=== PATIENT | male | born 2000 | race Caucasian/White ===

== ENCOUNTER 2022-06-01 22:15 | Inpatient (IN) ==
[2022-06-02] MEDS ORDERED: ONDANSETRON 4 MG/2 ML VIAL ONE (00:01)
[2022-06-02] MEDS ORDERED: ONDANSETRON 4 MG/2 ML VIAL IV STA (00:02)
[2022-06-02] MEDS ORDERED: SODIUM CHLORIDE 0.9% 1,000 ML IV STA (00:02)
[2022-06-02] MEDS ORDERED: KETOROLAC 30 MG/1 ML VIAL IV STA (00:41)
[2022-06-02] MEDS ORDERED: LEVOFLOXACIN INJ 750 MG/150 ML PREMIX IV STA (00:42)
[2022-06-02 00:53] LABS: Basophils % 0.2 % (0.0-0.8); Hematocrit 33.6 VOL% (42.0-52.0); Hemoglobin 11.8 GM/DL (14.0-18.0); Immature Granulocytes % 0.2 %; Immature Granulocytes Absolute 0.03 #; Lymphocytes # 0.7 10*3/uL (1.4-4.0); Lymphocytes % 5.3 % (21.2-54.2); Mean Corpuscular HGB Conc 35.1 GM/DL (32-36); Mean Corpuscular Volume 89.6 FL (87-102); Mean Platelet Volume 10.1 FL (9.6-12.0); Monocytes # 1.4 10*3/uL (0.11-0.8); Monocytes % 10.6 % (1.7-12.7); Neutrophils % 83.7 % (38.7-73.9); Platelet Count 183 T/CUMM (130-400); Red Blood Count 3.75 MC/CUMM (3.8-5.5); Red Cell Distribution Width 12.2 % (9.3-17.3); White Blood Count 12.7 T/CUMM (4-12)
[2022-06-02 01:15] LABS: Albumin 3.6 G/DL (3.4-5.0); Bilirubin,Total 0.7 MG/DL (0.20-1.00); Osmolality,Calculated 270.2 MOS/KG (273-304); Potassium 3.6 MMOL/L (3.5-5.1); Total Protein 7.7 G/DL (6.4-8.2)
[2022-06-02] MEDS ORDERED: PROMETHAZINE 25 MG/1 ML VIAL IM PRN (02:26)
[2022-06-02] MEDS ORDERED: SODIUM CHLORIDE 0.9% 1,000 ML IV SCH (02:30)
[2022-06-02 02:45] LABS: Mucus,Urine Many /LPF (Occasional); Protein,Urine 100 mg/dL (Negative); RBC,Urine 1 /HPF (0-4); Squamous Epithelial Cell,Urine Occasional /HPF (0-10); Urine Appearance Clear (Clear); Urine Color Yellow (Yellow); Urine Specific Gravity > 1.030 (1.001-1.035); Urine pH 5.5 (4.5-8.0)
[2022-06-02 02:46] LABS: Bilirubin,Urine Small mg/dL (Negative); Blood, Urine Negative (Negative); Glucose,Urine (UA) Negative (Negative); Ketones,Urine Trace mg/dL (Negative); Nitrite,Urine Negative (Negative)
[2022-06-02] MEDS ORDERED: SODIUM CHLORIDE 0.9% 500 ML IV STA (04:39)
[2022-06-02] MEDS ORDERED: PANTOPRAZOLE 40 MG TABLET PO SCH (09:00)
[2022-06-02] MEDS ORDERED: cefTRIAXone 1,000 MG VIAL ONE (09:07)
[2022-06-02] MEDS: ENOXAPARIN 40 MG/0.4 ML SYRINGE SUBCUT SCH (09:14)
[2022-06-02] MEDS: cefTRIAXone 2,000 MG in SODIUM CHLORIDE 0.9% 100 ML IV SCH (09:15)
[2022-06-02 09:16] LABS: Basophils % 0.3 % (0.0-0.8); Eosinophils % 0.1 % (0.00-10.9); Hematocrit 28.5 VOL% (42.0-52.0); Immature Granulocytes % 0.6 %; Immature Granulocytes Absolute 0.06 #; Lymphocytes % 10.5 % (21.2-54.2); Mean Corpuscular Volume 91.3 FL (87-102); Mean Platelet Volume 9.6 FL (9.6-12.0); Monocytes # 1.2 10*3/uL (0.11-0.8); Monocytes % 12.1 % (1.7-12.7); Neutrophils % 76.4 % (38.7-73.9); Platelet Count 162 T/CUMM (130-400); Red Blood Count 3.12 MC/CUMM (3.8-5.5); Red Cell Distribution Width 12.2 % (9.3-17.3); White Blood Count 9.8 T/CUMM (4-12)
[2022-06-02 09:17] LABS: Hemoglobin 9.7 GM/DL (14.0-18.0)
[2022-06-02 09:32] LABS: Albumin 2.8 G/DL (3.4-5.0); Bilirubin,Total 0.6 MG/DL (0.20-1.00); Calcium 8.3 MG/DL (8.5-10.1); Osmolality,Calculated 276.8 MOS/KG (273-304); Potassium 3.9 MMOL/L (3.5-5.1); Total Protein 6.5 G/DL (6.4-8.2)
[2022-06-02] MEDS ORDERED: NICOTINE 21 MG/24 HR PATCH TRANSDERM PRN (12:07)
[2022-06-02] MEDS: ONDANSETRON 4 MG/2 ML VIAL IV PRN (17:41)
[2022-06-02] MEDS: ACETAMINOPHEN 325 MG TABLET PO PRN (18:56)
[2022-06-02] MEDS: risperiDONE 1 MG TABLET PO SCH (21:12)
[2022-06-02] MEDS: CITALOPRAM 20 MG TABLET PO SCH (21:12)
[2022-06-02] MEDS: PROPRANOLOL 20 MG TABLET PO SCH (21:12)
[2022-06-02] MEDS: CYPROHEPTADINE 4 MG TABLET PO SCH (21:12)
[2022-06-03] MEDS ORDERED: LEVOFLOXACIN INJ 750 MG/150 ML PREMIX IV SCH (01:00)
[2022-06-03 04:44] LABS: Basophils % 0.3 % (0.0-0.8); Eosinophils % 0.5 % (0.00-10.9); Hematocrit 31.2 VOL% (42.0-52.0); Hemoglobin 10.3 GM/DL (14.0-18.0); Immature Granulocytes % 0.5 %; Immature Granulocytes Absolute 0.04 #; Lymphocytes % 13.7 % (21.2-54.2); Mean Corpuscular Volume 94.3 FL (87-102); Mean Platelet Volume 9.7 FL (9.6-12.0); Monocytes % 13.4 % (1.7-12.7); Neutrophils % 71.6 % (38.7-73.9); Platelet Count 164 T/CUMM (130-400); Red Blood Count 3.31 MC/CUMM (3.8-5.5); Red Cell Distribution Width 12.2 % (9.3-17.3); White Blood Count 7.5 T/CUMM (4-12)
[2022-06-03 05:24] LABS: Calcium 8.9 MG/DL (8.5-10.1); Folate 9.8 NG/ML (5.38-24.0); Osmolality,Calculated 272.8 MOS/KG (273-304); Potassium 4.2 MMOL/L (3.5-5.1)
[2022-06-03 05:49] LABS: HIV Antigen/Antibody Result Nonreactive (Nonreactive)
[2022-06-03 06:07] LABS: Sedimentation Rate-Westergren 100 MM/HR (0-15)
[2022-06-03] MEDS: cefTRIAXone 2,000 MG in SODIUM CHLORIDE 0.9% 100 ML IV SCH (08:26)
[2022-06-03] MEDS: AZITHROMYCIN 250 MG TABLET PO SCH (08:26)
[2022-06-03] MEDS: ENOXAPARIN 40 MG/0.4 ML SYRINGE SUBCUT SCH (08:26)
[2022-06-03] MEDS: ACETAMINOPHEN 325 MG TABLET PO PRN (12:30)
[2022-06-03] MEDS: CYPROHEPTADINE 4 MG TABLET PO SCH (20:27)
[2022-06-03] MEDS: CITALOPRAM 20 MG TABLET PO SCH (20:28)
[2022-06-03] MEDS: PROPRANOLOL 20 MG TABLET PO SCH (20:28)
[2022-06-03] MEDS: risperiDONE 1 MG TABLET PO SCH (20:28)
[2022-06-04] MEDS: ACETAMINOPHEN 325 MG TABLET PO PRN (04:56)
[2022-06-04] MEDS: ONDANSETRON 4 MG/2 ML VIAL IV PRN ×2 (04:57→21:08)
[2022-06-04] MEDS: PANTOPRAZOLE 40 MG TABLET PO SCH (05:32)
[2022-06-04] MEDS ORDERED: propofoL 200 MG/20 ML VIAL IV ONE (06:53)
[2022-06-04] MEDS ORDERED: LIDOCAINE 2% 5 ML VIAL ONE (06:53)
[2022-06-04] MEDS ORDERED: SODIUM CHLORIDE 0.9% 1,000 ML IV SCH (07:00)
[2022-06-04] MEDS ORDERED: FAMOTIDINE 20 MG/2 ML VIAL IV ONE (07:16)
[2022-06-04 08:55] LABS: Basophils % 0.4 % (0.0-0.8); Eosinophils # 0.1 10*3/uL (0.0-0.87); Eosinophils % 0.9 % (0.00-10.9); Hematocrit 31.1 VOL% (42.0-52.0); Hemoglobin 10.5 GM/DL (14.0-18.0); Immature Granulocytes % 0.5 %; Immature Granulocytes Absolute 0.04 #; Lymphocytes % 12.4 % (21.2-54.2); Mean Corpuscular HGB Conc 33.8 GM/DL (32-36); Mean Corpuscular Volume 91.7 FL (87-102); Mean Platelet Volume 9.8 FL (9.6-12.0); Monocytes # 0.9 10*3/uL (0.11-0.8); Neutrophils % 74.8 % (38.7-73.9); Platelet Count 250 T/CUMM (130-400); Red Blood Count 3.39 MC/CUMM (3.8-5.5); Red Cell Distribution Width 12.4 % (9.3-17.3); White Blood Count 7.7 T/CUMM (4-12)
[2022-06-04 09:12] LABS: Calcium 8.9 MG/DL (8.5-10.1); Osmolality,Calculated 274.7 MOS/KG (273-304); Potassium 4.3 MMOL/L (3.5-5.1)
[2022-06-04] MEDS: AZITHROMYCIN 250 MG TABLET PO SCH (10:06)
[2022-06-04] MEDS: ENOXAPARIN 40 MG/0.4 ML SYRINGE SUBCUT SCH (10:06)
[2022-06-04] MEDS: cefTRIAXone 2,000 MG in SODIUM CHLORIDE 0.9% 100 ML IV SCH (10:07)
[2022-06-04] MEDS: CYPROHEPTADINE 4 MG TABLET PO SCH (21:09)
[2022-06-04] MEDS: risperiDONE 1 MG TABLET PO SCH (21:09)
[2022-06-04] MEDS: PROPRANOLOL 20 MG TABLET PO SCH (21:09)
[2022-06-04] MEDS: CITALOPRAM 20 MG TABLET PO SCH (21:09)
[2022-06-05 05:36] LABS: Basophils % 0.5 % (0.0-0.8); Eosinophils # 0.1 10*3/uL (0.0-0.87); Eosinophils % 1.5 % (0.00-10.9); Hematocrit 31.3 VOL% (42.0-52.0); Hemoglobin 10.4 GM/DL (14.0-18.0); Immature Granulocytes % 1.6 %; Immature Granulocytes Absolute 0.12 #; Lymphocytes # 1.6 10*3/uL (1.4-4.0); Mean Corpuscular HGB Conc 33.2 GM/DL (32-36); Mean Corpuscular Volume 92.1 FL (87-102); Mean Platelet Volume 9.4 FL (9.6-12.0); Monocytes # 0.9 10*3/uL (0.11-0.8); Monocytes % 11.8 % (1.7-12.7); Neutrophils % 63.6 % (38.7-73.9); Platelet Count 259 T/CUMM (130-400); Red Cell Distribution Width 12.2 % (9.3-17.3); White Blood Count 7.5 T/CUMM (4-12)
[2022-06-05 05:58] LABS: Calcium 9.6 MG/DL (8.5-10.1); Osmolality,Calculated 274.7 MOS/KG (273-304); Potassium 4.1 MMOL/L (3.5-5.1)
[2022-06-05] MEDS: PANTOPRAZOLE 40 MG TABLET PO SCH (06:06)
[2022-06-05] MEDS: AZITHROMYCIN 250 MG TABLET PO SCH (09:34)
[2022-06-05] MEDS: cefTRIAXone 2,000 MG in SODIUM CHLORIDE 0.9% 100 ML IV SCH (09:34)
[2022-06-05] MEDS: ACETAMINOPHEN 325 MG TABLET PO PRN ×2 (09:34→14:44)
[2022-06-05] MEDS: PROPRANOLOL 20 MG TABLET PO SCH (20:53)
[2022-06-05] MEDS: CYPROHEPTADINE 4 MG TABLET PO SCH (20:54)
[2022-06-05] MEDS: risperiDONE 1 MG TABLET PO SCH (20:54)
[2022-06-05] MEDS: CITALOPRAM 20 MG TABLET PO SCH (20:54)
[2022-06-06 04:35] LABS: Basophils % 0.3 % (0.0-0.8); Eosinophils # 0.1 10*3/uL (0.0-0.87); Eosinophils % 1.2 % (0.00-10.9); Hematocrit 31.1 VOL% (42.0-52.0); Hemoglobin 10.6 GM/DL (14.0-18.0); Immature Granulocytes % 1.6 %; Immature Granulocytes Absolute 0.19 #; Lymphocytes # 1.7 10*3/uL (1.4-4.0); Lymphocytes % 14.5 % (21.2-54.2); Mean Corpuscular HGB Conc 34.1 GM/DL (32-36); Mean Corpuscular Volume 91.5 FL (87-102); Mean Platelet Volume 8.8 FL (9.6-12.0); Monocytes # 1.2 10*3/uL (0.11-0.8); Neutrophils % 72.4 % (38.7-73.9); Platelet Count 295 T/CUMM (130-400); White Blood Count 11.6 T/CUMM (4-12)
[2022-06-06 04:58] LABS: Calcium 8.9 MG/DL (8.5-10.1); Osmolality,Calculated 277.5 MOS/KG (273-304); Potassium 4.3 MMOL/L (3.5-5.1)
[2022-06-06] MEDS: PANTOPRAZOLE 40 MG TABLET PO SCH (06:08)
[2022-06-06] MEDS: cefTRIAXone 2,000 MG in SODIUM CHLORIDE 0.9% 100 ML IV SCH (09:28)
[2022-06-06] MEDS: AZITHROMYCIN 250 MG TABLET PO SCH (09:28)
[2022-06-06] MEDS: ONDANSETRON 4 MG/2 ML VIAL IV PRN ×2 (12:36→23:06)
[2022-06-06] MEDS: CITALOPRAM 20 MG TABLET PO SCH (21:47)
[2022-06-06] MEDS: PROPRANOLOL 20 MG TABLET PO SCH (21:47)
[2022-06-06] MEDS: risperiDONE 1 MG TABLET PO SCH (21:48)
[2022-06-06] MEDS: CYPROHEPTADINE 4 MG TABLET PO SCH (21:48)
[2022-06-06] MEDS: ACETAMINOPHEN 325 MG TABLET PO PRN (23:48)
[2022-06-07] MEDS: PANTOPRAZOLE 40 MG TABLET PO SCH (06:18)
[2022-06-07] MEDS: ONDANSETRON 4 MG/2 ML VIAL IV PRN (06:20)
[2022-06-07] MEDS: ACETAMINOPHEN 325 MG TABLET PO PRN ×2 (08:16→13:54)
[2022-06-07] MEDS: AZITHROMYCIN 250 MG TABLET PO SCH (08:16)
[2022-06-07] MEDS: cefTRIAXone 2,000 MG in SODIUM CHLORIDE 0.9% 100 ML IV SCH (08:21)
[2022-06-07 08:56] LABS: Basophils # 0.1 10*3/uL (0.0-0.2); Basophils % 0.3 % (0.0-0.8); Eosinophils # 0.1 10*3/uL (0.0-0.87); Eosinophils % 0.6 % (0.00-10.9); Hematocrit 30.9 VOL% (42.0-52.0); Hemoglobin 10.5 GM/DL (14.0-18.0); Immature Granulocytes % 1.6 %; Immature Granulocytes Absolute 0.29 #; Lymphocytes # 1.3 10*3/uL (1.4-4.0); Lymphocytes % 7.3 % (21.2-54.2); Mean Corpuscular Volume 88.8 FL (87-102); Mean Platelet Volume 8.9 FL (9.6-12.0); Monocytes # 1.6 10*3/uL (0.11-0.8); Monocytes % 8.7 % (1.7-12.7); Neutrophils % 81.5 % (38.7-73.9); Platelet Count 384 T/CUMM (130-400); Red Blood Count 3.48 MC/CUMM (3.8-5.5); Red Cell Distribution Width 12.2 % (9.3-17.3); White Blood Count 17.9 T/CUMM (4-12)
[2022-06-07 12:10] LABS: Bilirubin,Urine Negative (Negative); Blood, Urine Negative (Negative); Glucose,Urine (UA) Negative (Negative); Ketones,Urine Negative (Negative); Nitrite,Urine Negative (Negative); Protein,Urine Negative (Negative); Urine Appearance Clear (Clear); Urine Color Yellow (Yellow); Urine Urobilinogen 0.2 eU/dL (<2.0)
[2022-06-07 12:14] LABS: RBC,Urine 1 /HPF (0-4)
[2022-06-07] MEDS: PROPRANOLOL 20 MG TABLET PO SCH (20:30)
[2022-06-07] MEDS: risperiDONE 1 MG TABLET PO SCH (20:30)
[2022-06-07] MEDS: CYPROHEPTADINE 4 MG TABLET PO SCH (20:30)
[2022-06-07] MEDS: CITALOPRAM 20 MG TABLET PO SCH (20:30)
[2022-06-07] MEDS ORDERED: cefTRIAXone 2,000 MG in SODIUM CHLORIDE 0.9% 100 ML IV SCH (21:00)
[2022-06-08] MEDS: ACETAMINOPHEN 325 MG TABLET PO PRN ×2 (05:40→19:50)
[2022-06-08] MEDS: PANTOPRAZOLE 40 MG TABLET PO SCH (05:40)
[2022-06-08 06:14] LABS: Basophils # 0.1 10*3/uL (0.0-0.2); Basophils % 0.3 % (0.0-0.8); Eosinophils # 0.1 10*3/uL (0.0-0.87); Eosinophils % 0.7 % (0.00-10.9); Hematocrit 29.8 VOL% (42.0-52.0); Hemoglobin 10.3 GM/DL (14.0-18.0); Immature Granulocytes % 2.6 %; Immature Granulocytes Absolute 0.38 #; Lymphocytes # 1.4 10*3/uL (1.4-4.0); Lymphocytes % 9.6 % (21.2-54.2); Mean Corpuscular HGB Conc 34.6 GM/DL (32-36); Mean Corpuscular Volume 90.6 FL (87-102); Mean Platelet Volume 8.7 FL (9.6-12.0); Monocytes # 1.6 10*3/uL (0.11-0.8); Monocytes % 10.6 % (1.7-12.7); Neutrophils % 76.2 % (38.7-73.9); Platelet Count 390 T/CUMM (130-400); Red Blood Count 3.29 MC/CUMM (3.8-5.5); Red Cell Distribution Width 12.1 % (9.3-17.3); White Blood Count 14.9 T/CUMM (4-12)
[2022-06-08 06:34] LABS: Calcium 9.8 MG/DL (8.5-10.1); Osmolality,Calculated 264.5 MOS/KG (273-304); Potassium 4.1 MMOL/L (3.5-5.1)
[2022-06-08] MEDS: cefTRIAXone 2,000 MG in SODIUM CHLORIDE 0.9% 100 ML IV SCH ×2 (09:03→20:00)
[2022-06-08] MEDS: ONDANSETRON 4 MG/2 ML VIAL IV PRN (16:36)
[2022-06-08] MEDS: risperiDONE 1 MG TABLET PO SCH (20:00)
[2022-06-08] MEDS: CYPROHEPTADINE 4 MG TABLET PO SCH (20:00)
[2022-06-08] MEDS: PROPRANOLOL 20 MG TABLET PO SCH (20:00)
[2022-06-08] MEDS: CITALOPRAM 20 MG TABLET PO SCH (20:00)
[2022-06-09] MEDS: PANTOPRAZOLE 40 MG TABLET PO SCH (05:30)
[2022-06-09 05:32] LABS: Basophils % 0.3 % (0.0-0.8); Eosinophils # 0.1 10*3/uL (0.0-0.87); Eosinophils % 1.2 % (0.00-10.9); Hemoglobin 9.9 GM/DL (14.0-18.0); Immature Granulocytes % 2.2 %; Immature Granulocytes Absolute 0.27 #; Lymphocytes # 1.2 10*3/uL (1.4-4.0); Mean Corpuscular HGB Conc 34.1 GM/DL (32-36); Mean Corpuscular Volume 90.1 FL (87-102); Mean Platelet Volume 8.7 FL (9.6-12.0); Monocytes # 1.2 10*3/uL (0.11-0.8); Monocytes % 9.8 % (1.7-12.7); Neutrophils % 76.5 % (38.7-73.9); Platelet Count 404 T/CUMM (130-400); Red Blood Count 3.22 MC/CUMM (3.8-5.5); Red Cell Distribution Width 11.9 % (9.3-17.3); White Blood Count 12.1 T/CUMM (4-12)
[2022-06-09 05:56] LABS: Calcium 9.4 MG/DL (8.5-10.1); Osmolality,Calculated 270.1 MOS/KG (273-304); Potassium 3.6 MMOL/L (3.5-5.1)
[2022-06-09] MEDS: cefTRIAXone 2,000 MG in SODIUM CHLORIDE 0.9% 100 ML IV SCH (09:08)
[2022-06-09] MEDS: GENTAMICIN INJ 80 MG/50 ML PREMIX IV SCH ×2 (12:24→21:19)
[2022-06-09] MEDS: ACETAMINOPHEN 325 MG TABLET PO PRN (12:29)
[2022-06-09] MEDS: ALBUTEROL/IPRATROPIUM 3 ML NEB RESP TX SCH ×2 (14:15→19:26)
[2022-06-09] MEDS: CYPROHEPTADINE 4 MG TABLET PO SCH (21:20)
[2022-06-09] MEDS: CITALOPRAM 20 MG TABLET PO SCH (21:20)
[2022-06-09] MEDS: PROPRANOLOL 20 MG TABLET PO SCH (21:20)
[2022-06-09] MEDS: risperiDONE 1 MG TABLET PO SCH (21:20)
[2022-06-10] MEDS: ALBUTEROL/IPRATROPIUM 3 ML NEB RESP TX SCH ×4 (00:28→19:08)
[2022-06-10 05:48] LABS: Basophils % 0.4 % (0.0-0.8); Eosinophils # 0.2 10*3/uL (0.0-0.87); Eosinophils % 1.5 % (0.00-10.9); Hematocrit 29.9 VOL% (42.0-52.0); Hemoglobin 10.2 GM/DL (14.0-18.0); Immature Granulocytes Absolute 0.21 #; Lymphocytes # 1.6 10*3/uL (1.4-4.0); Lymphocytes % 15.7 % (21.2-54.2); Mean Corpuscular HGB Conc 34.1 GM/DL (32-36); Mean Corpuscular Volume 90.3 FL (87-102); Mean Platelet Volume 8.5 FL (9.6-12.0); Monocytes # 1.1 10*3/uL (0.11-0.8); Monocytes % 10.3 % (1.7-12.7); Neutrophils % 70.1 % (38.7-73.9); Platelet Count 457 T/CUMM (130-400); Red Blood Count 3.31 MC/CUMM (3.8-5.5); Red Cell Distribution Width 11.9 % (9.3-17.3); White Blood Count 10.3 T/CUMM (4-12)
[2022-06-10] MEDS: GENTAMICIN INJ 80 MG/50 ML PREMIX IV SCH ×3 (06:06→21:11)
[2022-06-10] MEDS: PANTOPRAZOLE 40 MG TABLET PO SCH (06:07)
[2022-06-10 06:28] LABS: Calcium 9.2 MG/DL (8.5-10.1); Osmolality,Calculated 272.8 MOS/KG (273-304)
[2022-06-10] MEDS: cefTRIAXone 2,000 MG in SODIUM CHLORIDE 0.9% 100 ML IV SCH (08:22)
[2022-06-10] MEDS: CYPROHEPTADINE 4 MG TABLET PO SCH (21:12)
[2022-06-10] MEDS: risperiDONE 1 MG TABLET PO SCH (21:12)
[2022-06-10] MEDS: PROPRANOLOL 20 MG TABLET PO SCH (21:12)
[2022-06-10] MEDS: CITALOPRAM 20 MG TABLET PO SCH (21:12)
[2022-06-11] MEDS: ALBUTEROL/IPRATROPIUM 3 ML NEB RESP TX SCH ×4 (00:02→19:04)
[2022-06-11] MEDS: GENTAMICIN INJ 80 MG/50 ML PREMIX IV SCH ×3 (04:20→21:31)
[2022-06-11] MEDS: PANTOPRAZOLE 40 MG TABLET PO SCH (05:34)
[2022-06-11] MEDS: cefTRIAXone 2,000 MG in SODIUM CHLORIDE 0.9% 100 ML IV SCH (08:02)
[2022-06-11] MEDS: CYPROHEPTADINE 4 MG TABLET PO SCH (21:30)
[2022-06-11] MEDS: PROPRANOLOL 20 MG TABLET PO SCH (21:31)
[2022-06-11] MEDS: CITALOPRAM 20 MG TABLET PO SCH (21:31)
[2022-06-11] MEDS: risperiDONE 1 MG TABLET PO SCH (21:31)
[2022-06-12] MEDS: ALBUTEROL/IPRATROPIUM 3 ML NEB RESP TX SCH ×4 (00:09→19:30)
[2022-06-12] MEDS: PANTOPRAZOLE 40 MG TABLET PO SCH (05:57)
[2022-06-12] MEDS: GENTAMICIN INJ 80 MG/50 ML PREMIX IV SCH (05:57)
[2022-06-12] MEDS: cefTRIAXone 2,000 MG in SODIUM CHLORIDE 0.9% 100 ML IV SCH (09:24)
[2022-06-12] MEDS: GENTAMICIN INJ 160 MG in SODIUM CHLORIDE 0.9% 100 ML IV SCH ×2 (13:57→21:08)
[2022-06-12] MEDS: CITALOPRAM 20 MG TABLET PO SCH (21:07)
[2022-06-12] MEDS: PROPRANOLOL 20 MG TABLET PO SCH (21:07)
[2022-06-12] MEDS: CYPROHEPTADINE 4 MG TABLET PO SCH (21:07)
[2022-06-12] MEDS: risperiDONE 1 MG TABLET PO SCH (21:07)
[2022-06-13] MEDS: ALBUTEROL/IPRATROPIUM 3 ML NEB RESP TX SCH ×4 (01:20→19:03)
[2022-06-13 05:22] LABS: Basophils # 0.1 10*3/uL (0.0-0.2); Basophils % 0.5 % (0.0-0.8); Eosinophils # 0.2 10*3/uL (0.0-0.87); Eosinophils % 2.4 % (0.00-10.9); Hematocrit 29.2 VOL% (42.0-52.0); Immature Granulocytes % 1.4 %; Immature Granulocytes Absolute 0.13 #; Lymphocytes # 1.9 10*3/uL (1.4-4.0); Lymphocytes % 20.2 % (21.2-54.2); Mean Corpuscular HGB Conc 34.2 GM/DL (32-36); Mean Corpuscular Volume 91.5 FL (87-102); Mean Platelet Volume 8.6 FL (9.6-12.0); Monocytes # 0.8 10*3/uL (0.11-0.8); Monocytes % 8.2 % (1.7-12.7); Neutrophils % 67.3 % (38.7-73.9); Platelet Count 461 T/CUMM (130-400); Red Blood Count 3.19 MC/CUMM (3.8-5.5); Red Cell Distribution Width 11.9 % (9.3-17.3); White Blood Count 9.3 T/CUMM (4-12)
[2022-06-13 05:34] LABS: Calcium 9.7 MG/DL (8.5-10.1); Osmolality,Calculated 273.7 MOS/KG (273-304); Potassium 4.2 MMOL/L (3.5-5.1)
[2022-06-13] MEDS: PANTOPRAZOLE 40 MG TABLET PO SCH (05:38)
[2022-06-13] MEDS: GENTAMICIN INJ 160 MG in SODIUM CHLORIDE 0.9% 100 ML IV SCH ×3 (05:38→21:40)
[2022-06-13] MEDS: cefTRIAXone 2,000 MG in SODIUM CHLORIDE 0.9% 100 ML IV SCH (08:13)
[2022-06-13] MEDS: risperiDONE 1 MG TABLET PO SCH (21:36)
[2022-06-13] MEDS: PROPRANOLOL 20 MG TABLET PO SCH (21:37)
[2022-06-13] MEDS: CITALOPRAM 20 MG TABLET PO SCH (21:37)
[2022-06-13] MEDS: CYPROHEPTADINE 4 MG TABLET PO SCH (21:37)
[2022-06-14] MEDS: ALBUTEROL/IPRATROPIUM 3 ML NEB RESP TX SCH ×5 (01:00→18:50)
[2022-06-14] MEDS: PANTOPRAZOLE 40 MG TABLET PO SCH (05:37)
[2022-06-14] MEDS: GENTAMICIN INJ 160 MG in SODIUM CHLORIDE 0.9% 100 ML IV SCH ×3 (05:37→21:31)
[2022-06-14] MEDS: cefTRIAXone 2,000 MG in SODIUM CHLORIDE 0.9% 100 ML IV SCH (10:18)
[2022-06-14] MEDS: risperiDONE 1 MG TABLET PO SCH (21:31)
[2022-06-14] MEDS: CITALOPRAM 20 MG TABLET PO SCH (21:31)
[2022-06-14] MEDS: PROPRANOLOL 20 MG TABLET PO SCH (21:31)
[2022-06-14] MEDS: CYPROHEPTADINE 4 MG TABLET PO SCH (21:31)
[2022-06-15] MEDS: ALBUTEROL/IPRATROPIUM 3 ML NEB RESP TX SCH ×4 (00:26→19:39)
[2022-06-15] MEDS: PANTOPRAZOLE 40 MG TABLET PO SCH (05:57)
[2022-06-15] MEDS: GENTAMICIN INJ 160 MG in SODIUM CHLORIDE 0.9% 100 ML IV SCH ×3 (05:57→21:16)
[2022-06-15] MEDS: cefTRIAXone 2,000 MG in SODIUM CHLORIDE 0.9% 100 ML IV SCH (09:56)
[2022-06-15] MEDS: PROPRANOLOL 20 MG TABLET PO SCH (21:16)
[2022-06-15] MEDS: CITALOPRAM 20 MG TABLET PO SCH (21:16)
[2022-06-15] MEDS: risperiDONE 1 MG TABLET PO SCH (21:17)
[2022-06-15] MEDS: CYPROHEPTADINE 4 MG TABLET PO SCH (21:17)
[2022-06-16] MEDS: ALBUTEROL/IPRATROPIUM 3 ML NEB RESP TX SCH ×2 (00:27→07:20)
[2022-06-16 05:42] LABS: Basophils % 0.4 % (0.0-0.8); Eosinophils # 0.1 10*3/uL (0.0-0.87); Hematocrit 31.1 VOL% (42.0-52.0); Hemoglobin 10.2 GM/DL (14.0-18.0); Immature Granulocytes % 0.6 %; Immature Granulocytes Absolute 0.04 #; Lymphocytes # 1.3 10*3/uL (1.4-4.0); Lymphocytes % 18.3 % (21.2-54.2); Mean Corpuscular HGB Conc 32.8 GM/DL (32-36); Mean Corpuscular Volume 93.1 FL (87-102); Mean Platelet Volume 8.7 FL (9.6-12.0); Monocytes # 0.5 10*3/uL (0.11-0.8); Monocytes % 7.5 % (1.7-12.7); Neutrophils % 71.2 % (38.7-73.9); Platelet Count 433 T/CUMM (130-400); Red Blood Count 3.34 MC/CUMM (3.8-5.5); Red Cell Distribution Width 12.1 % (9.3-17.3); White Blood Count 7.2 T/CUMM (4-12)
[2022-06-16] MEDS: GENTAMICIN INJ 160 MG in SODIUM CHLORIDE 0.9% 100 ML IV SCH (05:52)
[2022-06-16] MEDS: PANTOPRAZOLE 40 MG TABLET PO SCH (05:52)
[2022-06-16 05:55] LABS: Calcium 9.3 MG/DL (8.5-10.1); Osmolality,Calculated 278.3 MOS/KG (273-304); Potassium 4.1 MMOL/L (3.5-5.1)
[2022-06-16] MEDS: cefTRIAXone 2,000 MG in SODIUM CHLORIDE 0.9% 100 ML IV SCH (08:49)
[2022-06-16 12:15] VITALS: BP 118/58
== END 2022-06-16 12:38 | disposition home or self-care (01) | DRG 288 ==
LOC: N.ED 22:15 → SUATTDRO 06-02 02:26 → N.EDINP 06-02 02:26 → N.2E 06-02 11:31
PROVIDERS: ADMIT Family Medicine; ATTEND Internal Medicine

== ENCOUNTER 2022-06-27 05:30 | Inpatient (IN) ==
[2022-06-27] MEDS ORDERED: SODIUM CHLORIDE 0.9% 1,000 ML IV STA (06:10)
[2022-06-27 06:32] LABS: Basophils % 0.2 % (0.0-0.8); Eosinophils % 0.3 % (0.00-10.9); Hematocrit 33.2 VOL% (42.0-52.0); Hemoglobin 11.2 GM/DL (14.0-18.0); Immature Granulocytes % 0.5 %; Immature Granulocytes Absolute 0.07 #; Lymphocytes # 0.9 10*3/uL (1.4-4.0); Lymphocytes % 6.3 % (21.2-54.2); Mean Corpuscular HGB Conc 33.7 GM/DL (32-36); Mean Corpuscular Volume 90.7 FL (87-102); Mean Platelet Volume 9.2 FL (9.6-12.0); Monocytes # 1.3 10*3/uL (0.11-0.8); Neutrophils % 83.7 % (38.7-73.9); Platelet Count 249 T/CUMM (130-400); Red Blood Count 3.66 MC/CUMM (3.8-5.5); Red Cell Distribution Width 13.5 % (9.3-17.3); White Blood Count 14.4 T/CUMM (4-12)
[2022-06-27 06:52] LABS: Albumin 3.7 G/DL (3.4-5.0); Bilirubin,Total 0.6 MG/DL (0.20-1.00); Calcium 9.3 MG/DL (8.5-10.1); Osmolality,Calculated 273.8 MOS/KG (273-304); Potassium 4.3 MMOL/L (3.5-5.1); Total Protein 7.3 G/DL (6.4-8.2)
[2022-06-27] MEDS ORDERED: hydrALAZINE 20 MG/1 ML VIAL IV PRN (08:43)
[2022-06-27] MEDS: PANTOPRAZOLE 40 MG TABLET PO SCH (09:38)
[2022-06-27] MEDS: ENOXAPARIN 40 MG/0.4 ML SYRINGE SUBCUT SCH (09:39)
[2022-06-27] MEDS: cefTRIAXone 2,000 MG in SODIUM CHLORIDE 0.9% 100 ML IV SCH (09:46)
[2022-06-27] MEDS: GENTAMICIN INJ 160 MG in SODIUM CHLORIDE 0.9% 100 ML IV SCH ×2 (10:54→18:00)
[2022-06-27] MEDS ORDERED: GENTAMICIN INJ 160 MG in SODIUM CHLORIDE 0.9% 100 ML IV SCH (11:00)
[2022-06-27] MEDS: ACETAMINOPHEN 325 MG TABLET PO PRN ×2 (11:04→17:59)
[2022-06-27] MEDS: ALBUTEROL 2.5 MG/3 ML NEB RESP TX SCH ×2 (13:57→19:52)
[2022-06-27] MEDS: ONDANSETRON 4 MG/2 ML VIAL IV PRN (17:59)
[2022-06-27] MEDS: risperiDONE 1 MG TABLET PO SCH (21:00)
[2022-06-27] MEDS: CITALOPRAM 20 MG TABLET PO SCH (21:01)
[2022-06-28] MEDS: ALBUTEROL 2.5 MG/3 ML NEB RESP TX SCH ×4 (00:59→18:45)
[2022-06-28] MEDS: GENTAMICIN INJ 160 MG in SODIUM CHLORIDE 0.9% 100 ML IV SCH ×3 (04:02→18:19)
[2022-06-28 05:27] LABS: Basophils % 0.2 % (0.0-0.8); Eosinophils % 0.1 % (0.00-10.9); Hematocrit 32.7 VOL% (42.0-52.0); Hemoglobin 10.8 GM/DL (14.0-18.0); Immature Granulocytes % 0.7 %; Immature Granulocytes Absolute 0.11 #; Lymphocytes # 1.7 10*3/uL (1.4-4.0); Lymphocytes % 10.1 % (21.2-54.2); Mean Corpuscular Volume 92.4 FL (87-102); Mean Platelet Volume 9.1 FL (9.6-12.0); Monocytes # 2.1 10*3/uL (0.11-0.8); Monocytes % 13.1 % (1.7-12.7); Neutrophils % 75.8 % (38.7-73.9); Platelet Count 215 T/CUMM (130-400); Red Blood Count 3.54 MC/CUMM (3.8-5.5); Red Cell Distribution Width 13.4 % (9.3-17.3); White Blood Count 16.4 T/CUMM (4-12)
[2022-06-28 06:20] LABS: Calcium 9.5 MG/DL (8.5-10.1); Osmolality,Calculated 265.4 MOS/KG (273-304); Potassium 4.2 MMOL/L (3.5-5.1)
[2022-06-28] MEDS: PANTOPRAZOLE 40 MG TABLET PO SCH (08:35)
[2022-06-28] MEDS: ACETAMINOPHEN 325 MG TABLET PO PRN ×2 (08:35→18:19)
[2022-06-28] MEDS: PROPRANOLOL 20 MG TABLET PO SCH (08:35)
[2022-06-28] MEDS: ENOXAPARIN 40 MG/0.4 ML SYRINGE SUBCUT SCH (08:36)
[2022-06-28] MEDS: cefTRIAXone 2,000 MG in SODIUM CHLORIDE 0.9% 100 ML IV SCH (08:36)
[2022-06-28] MEDS: ONDANSETRON 4 MG/2 ML VIAL IV PRN ×3 (08:41→16:10)
[2022-06-28] MEDS: CLINDAMYCIN INJ 900 MG/50 ML PREMIX IV SCH ×2 (15:50→21:31)
[2022-06-28] MEDS: CITALOPRAM 20 MG TABLET PO SCH (21:31)
[2022-06-28] MEDS: risperiDONE 1 MG TABLET PO SCH (21:31)
[2022-06-29] MEDS: ALBUTEROL 2.5 MG/3 ML NEB RESP TX SCH ×3 (00:21→13:50)
[2022-06-29] MEDS: GENTAMICIN INJ 160 MG in SODIUM CHLORIDE 0.9% 100 ML IV SCH ×2 (03:20→11:26)
[2022-06-29 05:32] LABS: Basophils % 0.3 % (0.0-0.8); Eosinophils % 0.2 % (0.00-10.9); Hematocrit 29.5 VOL% (42.0-52.0); Hemoglobin 9.9 GM/DL (14.0-18.0); Immature Granulocytes Absolute 0.14 #; Mean Corpuscular HGB Conc 33.6 GM/DL (32-36); Mean Corpuscular Volume 88.9 FL (87-102); Mean Platelet Volume 9.2 FL (9.6-12.0); Monocytes # 1.9 10*3/uL (0.11-0.8); Monocytes % 12.9 % (1.7-12.7); Neutrophils % 78.6 % (38.7-73.9); Platelet Count 214 T/CUMM (130-400); Red Blood Count 3.32 MC/CUMM (3.8-5.5); Red Cell Distribution Width 13.2 % (9.3-17.3); White Blood Count 14.65 T/CUMM (4-12)
[2022-06-29] MEDS: CLINDAMYCIN INJ 900 MG/50 ML PREMIX IV SCH ×2 (05:51→13:41)
[2022-06-29 06:01] LABS: Calcium 9.6 MG/DL (8.5-10.1); Osmolality,Calculated 259.8 MOS/KG (273-304); Potassium 3.7 MMOL/L (3.5-5.1)
[2022-06-29 06:02] LABS: Calcium 9.3 MG/DL (8.5-10.1); Osmolality,Calculated 264.5 MOS/KG (273-304); Potassium 3.9 MMOL/L (3.5-5.1)
[2022-06-29] MEDS ORDERED: MAGNESIUM SULF RIDER 2 GM/50 ML PREMIX IV ONE (09:00)
[2022-06-29] MEDS: PROPRANOLOL 20 MG TABLET PO SCH (09:10)
[2022-06-29] MEDS: PANTOPRAZOLE 40 MG TABLET PO SCH (09:11)
[2022-06-29] MEDS: cefTRIAXone 2,000 MG in SODIUM CHLORIDE 0.9% 100 ML IV SCH (09:11)
[2022-06-29] MEDS: ENOXAPARIN 40 MG/0.4 ML SYRINGE SUBCUT SCH (09:15)
[2022-06-29] MEDS: ACETAMINOPHEN 325 MG TABLET PO PRN (10:14)
[2022-06-29] MEDS: ONDANSETRON 4 MG/2 ML VIAL IV PRN (13:42)
[2022-06-29 16:31] VITALS: BP 120/69
[2022-06-29] MEDS ORDERED: GENTAMICIN INJ 120 MG/100 ML PREMIX IV SCH (20:00)
== END 2022-06-29 16:00 | disposition hospice, home (50) | DRG 288 ==
LOC: N.EDINP 05:30 → N.ED 05:30 → N.2W 11:31 → SUATTDRO 15:19
PROVIDERS: ADMIT Family Medicine; ATTEND Hospitalist